=== PATIENT | female | born 1980 | race Caucasian/White ===

== ENCOUNTER 2018-04-09 02:35 | Emergency (ER) | payer OTHER ==
[~2018-04-09] VITALS: Ht 170.2 cm; Wt 81.7 kg
[2018-04-09] MEDS ORDERED: PERCOCET 5-3251 EACH PO (03:19)
[2018-04-09] MEDS ORDERED: AUGMENTIN 875-1 EACH PO (03:19)
[2018-04-13] MEDS ORDERED: WELLBUTRIN XL300 MG PO (11:08)
== END 2018-04-09 04:00 | disposition home or self-care (01) ==
LOC: ED 02:35
PROC: 3E0T3BZ Introduction of Anesthetic Agent into Peripheral Nerves and Plexi, Percutaneous Approach (ICD-10-PCS; principal; 2018-04-09)
DX: S68.111A Complete traumatic metacarpophalangeal amputation of left index finger, initial encounter (principal); L08.9 Local infection of the skin and subcutaneous tissue, unspecified; Z23 Encounter for immunization; W54.0XXA Bitten by dog, initial encounter
CPT/HCPCS: 64450; 73140; 90471; 90715; 99283

== ENCOUNTER 2018-04-14 08:30 | Day surgery (SDC) | payer OTHER ==
[~2018-04-14] VITALS: Ht 170.2 cm; Wt 86.2 kg
[~2018-04-14 08:30] MED LIST: AUGMENTIN 875-1 EACH PO; PERCOCET 5-3251 EACH PO; WELLBUTRIN XL300 MG PO
--- NOTE | 2018-04-14 14:59 | NUR ---
04/14/18 1459 Lisseth Kidd 1442 PT ARRIVED TO PACU, EYE OPEN BUT PT UNABLE TO FOCUS ON RN. RESP EVEN AND UNALBORED. PT REORIENTED TO PACU, PT LAUGHING. DENIES PAIN. 1450 PT RESTING WITH EYE CLOSED, VSS. O2 DECREASED TO 6L. ICE IN PLACE AND LEFT ARM/HAND ELEVATED. 1456 PT RESPONDING TO VERBAL STIMULI AND SPIT OUT SPUTUM FROM MOUTH, FEW SPOTS OF BLOOD NOTED IN SPUTUM.
[2018-04-14] MEDS ORDERED: ULTRAM50 MG PO (16:24)
--- NOTE | 2018-04-14 16:36 | NUR ---
LE 1625: PT UP TO BR WITH RN ASSIST. PT AMBULATES WELL AND IS ABLE TO VOID 500 MLS CONCENTRATED YELLOW URINE. NO PROBLEMS WITH VOIDING PER PT.
--- NOTE | 2018-04-14 16:41 | NUR ---
DISCHARGE INSTRUCTIONS GIVEN TO PATIENT. IV DC'D WNL. TIP INTACT. DRESSING APPLIED. PATIENT GETTING DRESSED.
--- NOTE | 2018-04-19 07:19 | OR ---
[facility] [address] [place], [place] [address] Signed DATE OF OPERATION: 04/14/2018 SURGEON: Juanito Napoles MD PREOPERATIVE DIAGNOSIS: Traumatic amputation tip, left index finger. POSTOPERATIVE DIAGNOSIS: Traumatic amputation tip, left index finger. PROCEDURE: Revision amputation, finger tip, left index with primary wound closure. ANESTHESIA: General. SPECIMENS AND COMPLICATIONS: There were no specimens or complications. TOURNIQUET TIME: Tourniquet time was about 30 minutes. PROCEDURE: The patient was taken to the operating room. Anegam block was administered by the Anesthesia Service; after which general inhalation anesthesia was induced. The hand was then prepped and draped in a routine sterile fashion. A fishmouth incision was made, centered over the condyles of the middle phalanx. Skin was divided sharply. Subcutaneous tissue was similarly sharply divided. Hemostasis was achieved with electrocautery. We then transected the finger through the DIP joint and delivered the /necrotic section off the wound. We then used the rongeur to remove the condyles of the middle phalanx, which gave us enough bone shortening to get tensionless primary wound closure. The wound was gently irrigated and closed in a single layer with 4-0 nylon. A sterile dressing was applied. The patient was awakened, taken to recovery room where she arrived in stable condition. Counts were correct and antibiotic protocols were followed. Juanito Napoles MD Electronically Signed By: JUANITO NAPOLES MD 04/19/18 0719 PATIENT NAME: STEVEN FREEMAN OPERATIVE REPORT DATE OF : 76 REPORT #: [id number] PHYSICIAN: JUANITO NAPOLES MD PCP: TEJAS FLOWERS REPORT IS CONFIDENTIAL AND NOT TO BE RELEASED WITHOUT AUTHORIZATION [address] [place], [place] [address] Signed [facility] /[id number] cc: JESUS Sanchez Copies: TEJAS FLOWERS ~ Electronically Signed By: JUANITO NAPOLES MD 04/19/18 0719 PATIENT NAME: STEVEN FREEMAN OPERATIVE REPORT DATE OF : 76 REPORT #: [id number] PHYSICIAN: JUANITO NAPOLES MD PCP: TEJAS FLOWERS REPORT IS CONFIDENTIAL AND NOT TO BE RELEASED WITHOUT AUTHORIZATION
== END 2018-04-14 16:50 | disposition home or self-care (01) ==
LOC: DS 08:30 → OPS 08:30
PROVIDERS: Orthopaedic Surgery
PROC: 0X6P0Z3 Detachment at Left Index Finger, Low, Open Approach (ICD-10-PCS; principal; 2018-04-14 12:15)
DX: S68.621A Partial traumatic transphalangeal amputation of left index finger, initial encounter (principal); F32.9 Major depressive disorder, single episode, unspecified; Z79.899 Other long term (current) drug therapy; W54.0XXA Bitten by dog, initial encounter; Z79.2 Long term (current) use of antibiotics
CPT/HCPCS: 01830; J0690; J1100; J1885; J2250; J2405; J2704; J2765; J3010; J7120

== ENCOUNTER 2021-07-04 21:09 | Emergency (ER) | payer OTHER ==
[~2021-07-04] VITALS: Ht 170.2 cm; Wt 68.0 kg
[~2021-07-04 21:09] MED LIST changes: +ULTRAM50 MG PO
[2021-07-04] MEDS ORDERED: AUGMENTIN 875-1 EACH PO (21:34)
== END 2021-07-04 22:15 | disposition home or self-care (01) ==
LOC: ED 21:09
DX: S81.852A Open bite, left lower leg, initial encounter (principal); L08.9 Local infection of the skin and subcutaneous tissue, unspecified; W54.0XXA Bitten by dog, initial encounter; Z88.8 Allergy status to other drugs, medicaments and biological substances; Z88.5 Allergy status to narcotic agent
CPT/HCPCS: 99283